=== PATIENT | female | born 1955 | race Hispanic/Latino ===

== ENCOUNTER 2022-03-21 16:37 | Inpatient (IN) | payer OTHER, MEDICARE ==
[~2022-03-21] VITALS: Ht 157.5 cm; Wt 82.2 kg
[2022-03-21 17:06] LABS: BASOPHILS % (AUTO) 0.5 % (0.0-5.0); EOSINOPHILS % (AUTO) 0.6 % (0.0-8.0); HEMATOCRIT 37.4 % (36-48); LYMPHOCYTES % (AUTO) 28.7 % (21.0-51.0); MEAN CORPUSCULAR HEMOGLOBIN 28.9 pg (27.0-33.0); MEAN CORPUSCULAR HGB CONC 34.5 g/dL (32.0-36.0); MEAN CORPUSCULAR VOLUME 83.7 fL (79-99); MONOCYTES % (AUTO) 6.6 % (3.0-13.0); NEUTROPHILS % (AUTO) 63.1 % (40.0-77.0); PLATELET COUNT (AUTO) 216 K/uL (130-400); RED BLOOD CELL COUNT(AUTO) 4.47 MIL/uL (4.00-5.50); WHITE BLOOD COUNT (AUTO) 6.6 K/uL (4.8-10.8)
[2022-03-21 17:18] LABS: CREATININE 0.7 mg/dL (0.5-1.5); POTASSIUM 3.4 mmol/L (3.5-5.1)
[2022-03-21 17:23] LABS: ALBUMIN 3.6 g/dL (3.5-5.0); TOTAL PROTEIN, SERUM 7.3 g/dL (6.0-8.3)
[2022-03-21 18:04] LABS: APPEARANCE,URINE CLEAR (CLEAR); BILIRUBIN,URINE NEGATIVE (NEGATIVE); COLOR,URINE COLORLESS (YELLOW); GLUCOSE, URINE (UA) NEGATIVE (NEGATIVE); KETONES,URINE NEGATIVE (NEGATIVE); LEUKOCYTE ESTERASE ,URINE 75 Leu/uL (NEGATIVE); NITRATE,URINE 1+ (NEGATIVE); OCCULT BLOOD,URINE NEGATIVE (NEGATIVE); PH,URINE 7.5 (5.0-8.0); PROTEIN,URINE NEGATIVE (NEGATIVE); UROBILINOGEN,URINE 0.2 mg/dL (0.2-1.0)
[2022-03-21 18:16] LABS: BACTERIA,URINE MOD /HPF (None Seen); MUCUS,URINE RARE LPF (None Seen); RBC,URINE 0-1 /HPF (0-1); SQUAMOUS EPITHELIAL CELL,UR RARE /HPF (0-2)
[2022-03-21] MEDS ORDERED: ASPIRIN 325MG EC TAB PO ONE (18:30)
[2022-03-21] MEDS ORDERED: MORPHINE 2 MG SYG IVP PRN (20:30)
[2022-03-21] MEDS ORDERED: ONDANSETRON 4MG TABLET PO PRN (20:30)
[2022-03-21] MEDS ORDERED: IOHEXOL 350 MG/ML 100ML INFUS..BTL IV ONE (20:40)
[2022-03-21] MEDS ORDERED: HEPARIN 5,000 UNIT VIAL ONE (20:49)
[2022-03-21] MEDS: HEPARIN 25,000 UNITS/250ML D5W 250 ML IV SCH (21:00)
[2022-03-21] MEDS: ATORVASTATIN 20 MG TABLET PO SCH (21:18)
[2022-03-21] MEDS: METOPROLOL TARTRATE 25 MG TAB PO SCH (21:21)
[2022-03-21] MEDS ORDERED: SERT-439 PO (21:53)
[2022-03-21] MEDS ORDERED: TRAZ150T79 PO (21:53)
[2022-03-21] MEDS ORDERED: LETR2.5T7 PO (21:53)
[2022-03-21] MEDS ORDERED: AMLO-258 PO (21:53)
[2022-03-21] MEDS ORDERED: METO25TA6 PO (21:53)
[2022-03-21] MEDS ORDERED: FOLI1TAB85 PO (21:53)
[2022-03-21] MEDS ORDERED: ARIP15TA18 PO (21:53)
[2022-03-21] MEDS ORDERED: ERGO500093 PO (21:53)
[2022-03-21] MEDS ORDERED: CLON0.5T4 PO (21:53)
[2022-03-21 22:51] VITALS: BP 167/86
[2022-03-21] MEDS: ARIPIPRAZOLE 5 MG TABLET PO SCH (23:30)
[2022-03-22] MEDS: TRAZODONE HCL 50 MG TAB PO SCH ×2 (00:05→20:57)
[2022-03-22] MEDS: SERTRALINE HCL 50 MG TABLET PO SCH ×2 (00:05→20:57)
[2022-03-22] MEDS: ACETAMINOPHEN 325 MG TAB PO PRN (00:22)
[2022-03-22 03:49] LABS: PROTHROMBIN TIME 10.9 SEC (9.6-11.6)
[2022-03-22 04:23] VITALS: BP 153/90
[2022-03-22 05:02] LABS: PARTIAL THROMBOPLASTIN TIME > 139.0 SEC (26.3-35.5)
[2022-03-22 07:00] VITALS: BP 154/81
[2022-03-22] MEDS: METOPROLOL TARTRATE 25 MG TAB PO SCH ×2 (09:05→20:57)
[2022-03-22] MEDS: ASPIRIN 81 MG EC TAB PO SCH (09:05)
[2022-03-22 11:00] VITALS: BP 146/73
[2022-03-22 16:00] VITALS: BP 167/80
[2022-03-22] MEDS ORDERED: POTASSIUM CHLORIDE 10% ELIXIR 20 MEQ/15 ML UDCUP PO PRN (16:00)
[2022-03-22] MEDS ORDERED: POTASSIUM CHLORIDE 20MEQ/100ML 100 ML IV PRN (16:00)
[2022-03-22] MEDS ORDERED: LIDOCAINE HCL-MPF 1% 2ML VIAL IV PRN (16:00)
[2022-03-22] MEDS: KCL 20 MEQ ERTAB PO PRN (17:40)
[2022-03-22 18:00] VITALS: BP 135/72
[2022-03-22] MEDS: ATORVASTATIN 20 MG TABLET PO SCH (20:57)
[2022-03-22] MEDS: CLONAZEPAM 0.5 MG TABLET PO PRN (20:58)
[2022-03-22] MEDS ORDERED: SERTRALINE HCL 50 MG TABLET PO SCH (21:00)
[2022-03-22] MEDS ORDERED: ARIPIPRAZOLE 5 MG TABLET PO SCH (21:00)
[2022-03-22] MEDS ORDERED: TRAZODONE HCL 50 MG TAB PO SCH (21:00)
[2022-03-22] MEDS: ARIPIPRAZOLE 5 MG TABLET PO SCH (21:24)
[2022-03-22] MEDS: HEPARIN 25,000 UNITS/250ML D5W 250 ML IV SCH (21:33)
[2022-03-22 23:00] VITALS: BP 141/83
[2022-03-23 03:44] LABS: HEMATOCRIT 37.1 % (36-48); MEAN CORPUSCULAR HGB CONC 35.3 g/dL (32.0-36.0); MEAN CORPUSCULAR VOLUME 82.1 fL (79-99); RED BLOOD CELL COUNT(AUTO) 4.52 MIL/uL (4.00-5.50); RED CELL DISTRIBUTION WIDTH 12.9 % (11.0-15.5); WHITE BLOOD COUNT (AUTO) 6.6 K/uL (4.8-10.8)
[2022-03-23 03:56] LABS: HEMOGLOBIN A1C 5.5 % (4.0-6.0)
[2022-03-23 04:00] VITALS: BP 120/54
[2022-03-23 04:12] LABS: ALBUMIN 3.5 g/dL (3.5-5.0); CREATININE 0.7 mg/dL (0.5-1.5); POTASSIUM 3.2 mmol/L (3.5-5.1); TOTAL PROTEIN, SERUM 7.2 g/dL (6.0-8.3)
[2022-03-23 04:25] LABS: MAGNESIUM 2.2 mg/dL (1.80-2.40)
[2022-03-23 07:57] VITALS: BP 135/73
[2022-03-23] MEDS: METOPROLOL TARTRATE 25 MG TAB PO SCH ×2 (08:05→21:09)
[2022-03-23] MEDS: KCL 20 MEQ ERTAB PO PRN ×3 (08:06→14:37)
[2022-03-23] MEDS: CLONAZEPAM 0.5 MG TABLET PO PRN ×2 (08:06→21:08)
[2022-03-23] MEDS: ASPIRIN 81 MG EC TAB PO SCH (08:08)
[2022-03-23] MEDS: ACETAMINOPHEN 325 MG TAB PO PRN (09:31)
[2022-03-23 11:12] VITALS: BP 135/71
[2022-03-23] MEDS ORDERED: CEFTRIAXONE 1G VIAL IVP SCH (13:30)
[2022-03-23 15:56] VITALS: BP 135/69
[2022-03-23 19:59] VITALS: BP 154/73
[2022-03-23] MEDS: ARIPIPRAZOLE 5 MG TABLET PO SCH (21:00)
[2022-03-23] MEDS: TRAZODONE HCL 50 MG TAB PO SCH (21:08)
[2022-03-23] MEDS: SERTRALINE HCL 50 MG TABLET PO SCH (21:09)
[2022-03-23] MEDS: ATORVASTATIN 20 MG TABLET PO SCH (21:09)
[2022-03-24] VITALS: BP 140/64
[2022-03-24 04:00] VITALS: BP 105/55
[2022-03-24 08:01] VITALS: BP 128/51
[2022-03-24] MEDS: METOPROLOL TARTRATE 25 MG TAB PO SCH (08:27)
[2022-03-24] MEDS: ASPIRIN 81 MG EC TAB PO SCH (08:27)
[2022-03-24 11:44] VITALS: BP 134/65
[2022-03-24] MEDS ORDERED: LEVOFLOXACIN 750 MG/D5W 150 ML 150 ML ONE (15:19)
[2022-03-24 15:43] VITALS: BP 152/78
[2022-03-24] MEDS ORDERED: LEVOFLOXACIN 500 MG TABLET ONE (18:07)
[2022-03-24] MEDS ORDERED: LEVOFLOXACIN 750 MG TABLET PO SCH (18:30)
[2022-03-25] MEDS ORDERED: LEVOFLOXACIN 750 MG/D5W 150 ML 150 ML IV SCH (09:00)
== END 2022-03-24 18:50 | disposition home or self-care (01) | DRG 281 ==
LOC: EDH 16:37 → EDHIP 20:00 → 2DH 22:41
PROVIDERS: ADMIT Internal Medicine Infectious Disease; ATTEND Internal Medicine Infectious Disease
DX: I21.4 Non-ST elevation (NSTEMI) myocardial infarction (principal); N39.0 Urinary tract infection, site not specified; E78.5 Hyperlipidemia, unspecified; E87.6 Hypokalemia; F32.A Depression, unspecified; F41.9 Anxiety disorder, unspecified; M19.90 Unspecified osteoarthritis, unspecified site; I10 Essential (primary) hypertension; R53.81 Other malaise; I48.91 Unspecified atrial fibrillation; Z74.01 Bed confinement status; Z85.3 Personal history of malignant neoplasm of breast; Z90.11 Acquired absence of right breast and nipple
CPT/HCPCS: 36415; 70450; 71275; 80053; 81001; 82550; 83036; 83735; 83874; 83880; 84484; 85025; 85027; 85378; 85610; 85730; 87077; 87088; 87186; 93005; 93306; 93356; 93970; 97039; G0378; J0696; J1644; J1956; Q9967